=== PATIENT | male | born 1980 | race Caucasian/White ===

== ENCOUNTER 2019-02-05 14:11 | Emergency (ER) | payer MEDICAID, OTHER ==
[~2019-02-05] VITALS: Ht 170.2 cm; Wt 86.4 kg
[2019-02-05] MEDS ORDERED: morphine 4 MG/ML inj SYRINge IM ONE (14:25)
[2019-02-05] MEDS ORDERED: LEVO500T2 PO (15:40)
[2019-02-05] MEDS ORDERED: CefTRIAXone 250MG IM Kit w/LIDOcaine IM ONE (15:40)
[2019-02-05] MEDS ORDERED: IBUP-1985 PO (15:42)
[2019-02-05 16:23] VITALS: BP 144/57
== END 2019-02-05 16:25 | disposition home or self-care (01) ==
LOC: ER 14:12
DX: N45.1 Epididymitis (principal); Z98.890 Other specified postprocedural states; Z79.899 Other long term (current) drug therapy
CPT/HCPCS: 76870; 96372; 99284; J0696; J2270